=== PATIENT | female | born 1975 | race Caucasian/White ===

== ENCOUNTER 2024-12-29 13:15 | Outpatient (AMB) | payer MEDICAID, SELFPAY ==
--- NOTE | 2024-12-29 13:31 | PD.ORTHCLVIS ---
Vital signs 12/29/24 13:32 Height 1.57 m Height Method Stated Weight 87.742 kg Weight Measurement Method Standing Scale BMI 35.4 BP 113/77 Blood Pressure Source Automatic Cuff Blood Pressure Location Right Upper Arm Position Sitting Respiration 17 Pulse 71 Pulse Source Monitor Temp 96.9 F Temp Source Temporal Artery Scan Pulse Oximetry (%) 96 Oxygen Delivery Method Room Air Med/Allergies Allergies & Medications Allergies No Known Allergies Allergy (Verified 12/29/24 13:33) Medication Reconciliation ibuprofen 800 mg tablet 800 mg PO TID 12/29/24 [History Confirmed 12/29/24] meloxicam 7.5 mg tablet 7.5 mg PO QDAY #45 tabs 12/29/24 [Rx] Exam Exam Patient is in no acute distress and is cooperative with the examination today. Breathing is nonlabored. In no respiratory distress. Bilateral extremities were evaluated and demonstrates sensation intact to light touch. Palpable pedal pulses are present. No significant edema is present. Bilateral hips were examined. The patient has no pain with log roll of the hips. Internal rotation to 30 degrees and external rotation to 30 degrees is painless. Negative FADIR. The left knee was examined. The left knee is in varus alignment. Range of motion from 0-115 degrees. Knee is stable to varus and valgus as well as AP translation with <5mm. Patient has a negative McMurrays. There is no pain with patellofemoral compression and no crepitus noted. The knee is tender to palpation medially. The right knee was also examined. The right knee is in varus alignment. Range of motion from 0-120 degrees. Knee is stable to varus and valgus as well as AP translation with <5mm. Patient has a negative McMurrays. There is no pain with patellofemoral compression and no crepitus noted. The knee is tender to palpation medially. Assessment and Plan Problem List (1) Degenerative arthritis of knee, bilateral: Status: Acute Plan: Patient is a pleasant 49-year-old female with bilateral knee arthritis. Will get authorization for injections at next visit. I will also send her prescription for meloxicam. We will see her back after we get authorization for injections and we encouraged her to bring her x-rays Office Procedures GNS Level of Care Nursing/Assessment Patient Status: Initial/New Patient Nursing Assessment/Reassesment: Medication Reconciliation, Update PMH in EMR and Vital Signs Coordination of Care: Complex Care and Chronic Disease 1-5, Education Complex Pt/Fam, Consent,records obtained, informed consent, 1 Ins Authorization, Lab and Imaging orders, Results/Orders obtained and Staff clarify orders New Patient Charge New Patient Point Assignment: 1124 New Patient Point Charge: BOND CLERK Level 4 (0499-3178) MA Intake Visit Data Collection New Patient or Established: New Patient (never been to [facility]) Reason for Visit:: BILATERAL OSTEOARTHRITIS OF KNEE Seen by Clinical Staff ONLY (RN/MA): No Tangled Yarn Spool Straightener Required: No PCP or OBGYN visit in last 3 months: Yes Hx Now: No Do You Feel Safe at Home: Yes Authorities Contacted: N/A Questionairres Past Medical History Past Medical History Have you ever been diagnosed with any of the following: Respiratory Problems Smoking: No Smoking Exposure: No Tobacco Use: No Subjective Visit Visit for: new patient and knee (BILATERAL OSTEOARTHRISTIS ) Immunization / Flu Flu Vaccine in the Last 12 Months: No Flu Vaccine Exclusion Criteria: Refused by Patient History of Present Illness Chief complaint: Bilateral knee pain Carlie is a pleasant 49-year-old female with bilateral knee pain and bilateral knee arthritis. We discussed different treatment options. We discussed anti-inflammatories, injections, and physical therapy. She had 1 injection in May. Will get authorization for more injections. I would also need a copy of her weightbearing x-rays. She has tried ibuprofen in the past Personal History Red flag PMH: none Pain Pain level (0-10): 9 Pain duration: 07/2024 Pain location: anterior Pain quality: sharp, aching and other (specify) (SWELLING ) Pain timing: night and increases with activity Associated signs & symptoms: numbness, weakness and stiffness Ambulatory data Ambulatory device: none Walking distance (minutes): 10 Treatments Number of previous injections: 3 Improvement with previous injections: Yes Number of Physical Therapy sessions: 0 Improvement with NSAIDS: n/a Review of Systems Review of Systems: All systems negative unless otherwise noted in HPI.
[2024-12-29 13:32] VITALS: BP 113/77; PULSE 71; RESP 17; TEMP 36.1; O2SAT 96; BMI 35.4
== END 2024-12-29 13:52 | disposition home or self-care (01) ==
LOC: HODSRG 13:15
PROVIDERS: PCP Family Medicine; Referring Provider Family Medicine; Supervising Provider Orthopaedic Surgery Adult Reconstructive Orthopaedic Surgery; Visit Provider Orthopaedic Surgery Adult Reconstructive Orthopaedic Surgery
DX: M17.0 Bilateral primary osteoarthritis of knee (principal); M25.562 Pain in left knee; M25.561 Pain in right knee
CPT/HCPCS: 99204; G0463

== ENCOUNTER 2025-01-13 14:01 | Outpatient (AMB) | payer MEDICAID, SELFPAY ==
--- NOTE | 2025-01-13 14:10 | PD.ORTHCLVIS ---
Vital signs 01/13/25 14:11 Height 1.57 m Height Method Stated Weight 88.564 kg Weight Measurement Method Standing Scale BMI 35.9 BP 126/81 Blood Pressure Source Automatic Cuff Blood Pressure Location Left Upper Arm Position Sitting Respiration 19 Pulse 70 Pulse Source Monitor Temp 97.6 F Temp Source Temporal Artery Scan Pulse Oximetry (%) 97 Oxygen Delivery Method Room Air Med/Allergies Allergies & Medications Allergies No Known Allergies Allergy (Verified 01/13/25 14:11) Medication Reconciliation ibuprofen 800 mg tablet 800 mg PO TID 12/29/24 [History Confirmed 01/13/25] meloxicam 7.5 mg tablet 7.5 mg PO QDAY #45 tabs 12/29/24 [Rx Confirmed 01/13/25] Exam Exam Patient is in no acute distress and is cooperative with the examination today. Breathing is nonlabored. In no respiratory distress. Bilateral extremities were evaluated and demonstrates sensation intact to light touch. Palpable pedal pulses are present. No significant edema is present. Bilateral hips were examined. The patient has no pain with log roll of the hips. Internal rotation to 30 degrees and external rotation to 30 degrees is painless. Negative FADIR. The left knee was examined. The left knee is in varus alignment. Range of motion from 0-115 degrees. Knee is stable to varus and valgus as well as AP translation with <5mm. Patient has a negative McMurrays. There is no pain with patellofemoral compression and no crepitus noted. The knee is tender to palpation medially. The right knee was also examined. The right knee is in varus alignment. Range of motion from 0-120 degrees. Knee is stable to varus and valgus as well as AP translation with <5mm. Patient has a negative McMurrays. There is no pain with patellofemoral compression and no crepitus noted. The knee is tender to palpation medially. Assessment and Plan Problem List (1) Degenerative arthritis of knee, bilateral: Status: Acute Plan: Patient is a pleasant 49-year-old female with bilateral knee arthritis. She would bilateral knee injections today. Recommend knee cortisone injections as patient would like to proceed with conservative treatment at this time. The risks and benefits of the procedure were reviewed with the patient and patient gave verbal consent to continue with the procedure. Procedure: performed by Dr. Mendoza Using sterile technique the Bilateral knees were thoroughly prepped with alcohol, and approximately 1 cc of Kenalog 40 mg/mL and 4 cc of 1% lidocaine was injected into each knee without resistance into the medial tibial femoral joint space. The patient tolerated the procedure. Office Procedures GNS Level of Care Nursing/Assessment Patient Status: Established Patient Nursing Assessment/Reassesment: Medication Reconciliation, Update PMH in EMR and Vital Signs Coordination of Care: Complex Care and Chronic Disease 1-5, Education Complex Pt/Fam, Consent,records obtained, informed consent, Results/Orders obtained and Staff clarify orders Special Needs: Language special needs Established Patient Charge Established Patient Point Assignment: 95 Established Patient Point Charge: EP Level 3 (80-115) Surgical Proc/IM SQ injection Major Surgical Procedure: Yes (BILATERAL KNEE INJECTION) Medication Given Medication Given Medication Given: Yes Documented Dose Given: 8 Route: Infiitration Medication Given Medication Given Medication Given: Yes Documented Dose Given: 2 Route: Infiitration Office Meds Xylocaine 10 mg/mL (1 %) injection solution Performing Provider: Delfin Mendoza MD Performing Location: [facility] Administered by: Delfin Mendoza MD on 01/13/25 14:25 Dose Route Admin Location Dispensed Lot Number Expiration Date [facility] Early Childhood Teacher 40 mL Infiltration 40 mL [id number] 11/19/27 18670-765-06 [facility] triamcinolone acetonide 40 mg/mL suspension for injection Performing Provider: Delfin Mendoza MD Performing Location: [facility] Administered by: Delfin Mendoza MD on 01/13/25 14:25 Dose Route Admin Location Dispensed Lot Number Expiration Date [facility] Early Childhood Teacher 80 mg intra-articular 2 mL [id number] 02/17/26 10890-110-68 CESAR CABEZAS MA Intake Visit Data Collection New Patient or Established: Established Patient (seen at [facility] within 3 years) Reason for Visit:: XRAY RESULTS/BL KNEE INJECTION Seen by Clinical Staff ONLY (RN/MA): No Metal Fabrication Supervisor Required: Yes PCP or OBGYN visit in last 3 months: Yes Hx Now: No Do You Feel Safe at Home: Yes Authorities Contacted: N/A Questionairres Past Medical History Past Medical History Have you ever been diagnosed with any of the following: Respiratory Problems Smoking: No Smoking Exposure: No Tobacco Use: No Subjective Visit Visit for: follow up visit, knee (BILATERAL) and x-rays (RESULTS) Immunization / Flu Flu Vaccine in the Last 12 Months: No Flu Vaccine Exclusion Criteria: No Exclusion Criteria History of Present Illness Chief complaint: Bilateral knee pain Carlie is a pleasant 49-year-old female with bilateral knee pain and bilateral knee arthritis. We discussed different treatment options. We discussed anti-inflammatories, injections, and physical therapy. She had 1 injection in May. Will get authorization for more injections. Personal History Red flag PMH: none Pain Pain level (0-10): 6 Pain duration: ALL DAY Pain location: inside (medial), outside (lateral), anterior and posterior Pain quality: sharp, dull and aching Pain timing: night, increases with activity and stairs Associated signs & symptoms: weakness Ambulatory data Ambulatory device: cane Walking distance (minutes): 10 Treatments Number of previous injections: 3 Improvement with previous injections: No Number of Physical Therapy sessions: 0 Improvement with PT: No Improvement with NSAIDS: no Review of Systems Review of Systems: All systems negative unless otherwise noted in HPI.
[2025-01-13 14:11] VITALS: BP 126/81; PULSE 70; RESP 19; TEMP 36.4; O2SAT 97; BMI 35.9
--- NOTE | 2025-01-13 14:15 | XR_ITS ---
Examination: Bilateral knees 2 views Right lateral knee left lateral knee 2 views Bilateral axial knees single view TECHNIQUE: Bilateral AP knees standing single view, bilateral PA knees standing single view flexion Standing right lateral knee left lateral knee 2 views Bilateral axial knees single view Date and time: January 13, 2025 1425 hours INDICATIONS: Bilateral knee pain several years. FINDINGS: Moderate osteopenia Severe narrowing, [id number], lateral joint spaces bilaterally Bilateral moderate to advanced osteoarthritis patellofemoral joints IMPRESSION: Severe narrowing, [id number], lateral joint spaces bilaterally
== END 2025-01-13 14:27 | disposition home or self-care (01) ==
PROVIDERS: PCP Family Medicine; Referring Provider Family Medicine; Supervising Provider Orthopaedic Surgery Adult Reconstructive Orthopaedic Surgery; Visit Provider Orthopaedic Surgery Adult Reconstructive Orthopaedic Surgery
DX: M17.0 Bilateral primary osteoarthritis of knee (principal)
CPT/HCPCS: 20610; 73564; 99213; J3301; J3490; G0463

== ENCOUNTER 2025-04-20 09:10 | Outpatient (AMB) | payer MEDICAID, SELFPAY ==
--- NOTE | 2025-04-20 09:40 | ORTHONT_ITS ---
Vital signs 04/20/25 09:41 Height 1.57 m Height Method Measured Weight 85.304 kg Weight Measurement Method Standing Scale BMI 34.6 BP 113/76 Blood Pressure Source Automatic Cuff Blood Pressure Location Left Upper Arm Position Sitting Respiration 18 Pulse 76 Pulse Source Monitor Temp 97.4 F Temp Source Temporal Artery Scan Pulse Oximetry (%) 97 Oxygen Delivery Method Room Air Med/Allergies Allergies & Medications Allergies No Known Allergies Allergy (Verified 04/20/25 09:48) Medication Reconciliation ibuprofen 800 mg tablet 800 mg PO TID 12/29/24 [History Confirmed 04/20/25] meloxicam 7.5 mg tablet 7.5 mg PO QDAY #45 tabs 12/29/24 [Rx Confirmed 04/20/25] Exam Exam Patient is in no acute distress and is cooperative with the examination today. Breathing is nonlabored. In no respiratory distress. Bilateral extremities were evaluated and demonstrates sensation intact to light touch. Palpable pedal pulses are present. No significant edema is present. Bilateral hips were examined. The patient has no pain with log roll of the hips. Internal rotation to 30 degrees and external rotation to 30 degrees is painless. Negative FADIR. The left knee was examined. The left knee is in varus alignment. Range of motion from 0-115 degrees. Knee is stable to varus and valgus as well as AP translation with <5mm. Patient has a negative McMurrays. There is no pain with patellofemoral compression and no crepitus noted. The knee is tender to palpation medially. The right knee was also examined. The right knee is in varus alignment. Range of motion from 0-120 degrees. Knee is stable to varus and valgus as well as AP translation with <5mm. Patient has a negative McMurrays. There is no pain with patellofemoral compression and no crepitus noted. The knee is tender to palpation medially. Assessment and Plan Problem List (1) Degenerative arthritis of knee, bilateral: Status: Acute Plan: Patient is a pleasant 49-year-old female with bilateral knee arthritis. She would bilateral knee injections today. Recommend knee cortisone injection as patient would like to proceed with conservative treatment at this time. The risks and benefits of the procedure were reviewed with the patient and patient gave verbal consent to continue with the procedure. Procedure: performed by Dr. Mendoza Using sterile technique the Right knee was thoroughly prepped with alcohol, and approximately 1 cc of Depo-Medrol 80mg/mL and 4 cc of 0.2% ropivacaine was injected without resistance into the medial tibial femoral joint space. The patient tolerated the procedure. Recommend knee cortisone injection as patient would like to proceed with conservative treatment at this time. The risks and benefits of the procedure were reviewed with the patient and patient gave verbal consent to continue with the procedure. Procedure: performed by Dr. Mendoza Using sterile technique the leftknee was thoroughly prepped with alcohol, and approximately 1 cc of Depo- Medrol 80mg/mL and 4 cc of 0.2% ropivacaine was injected without resistance into the medial tibial femoral joint space. The patient tolerated the procedure. Office Procedures GNS Level of Care Nursing/Assessment Patient Status: Established Patient Nursing Assessment/Reassesment: Medication Reconciliation, Update PMH in EMR and Vital Signs Coordination of Care: Complex Care and Chronic Disease 1-5, Education Complex Pt/Fam, Consent,records obtained, informed consent, Results/Orders obtained and Staff clarify orders Special Needs: Language special needs Established Patient Charge Established Patient Point Assignment: 95 Established Patient Point Charge: EP Level 3 (80-115) Surgical Proc/IM SQ injection Minor Surgical Procedure: Yes (KNEE INJECTION) Medication Given Medication Given Medication Given: Yes Documented Dose Given: 1 Route: Infiitration Medication Given Medication Given Medication Given: Yes Documented Dose Given: 1 Route: Infiitration Medication Given Medication Given Medication Given: Yes Documented Dose Given: 4 Route: Infiitration Medication Given Medication Given Medication Given: Yes Documented Dose Given: 4 Route: Infiitration Office Meds methylprednisolone acetate 80 mg/mL suspension for injection Performing Provider: Delfin Mendoza MD Performing Location: [facility] Administered by: Delfin Mendoza MD on 04/20/25 09:54 Dose Route Admin Location Dispensed Lot Number Expiration Date Pack age [facility] End Finder Twisting Department 80 mg intra-articular KNEE 1 mL [id number] 12/19/26 [address]-2 7 [id number] [employer] methylprednisolone acetate 80 mg/mL suspension for injection Performing Provider: Delfin Mendoza MD Performing Location: [facility] Administered by: Dlefin Mendoza MD on 04/20/25 09:54 Dose Route Admin Location Dispensed Lot Number Expiration Date Pack age [facility] End Finder Twisting Department 80 mg intra-articular KNEE 1 mL [id number] 12/19/26 [address]-6 7 [id number] [employer] ropivacaine (PF) 2 mg/mL (0.2 %) injection solution Performing Provider: Delfin Mendoza MD Performing Location: [facility] Administered by: Delfin Mendoza MD on 04/20/25 09:54 Dose Route Admin Location Dispensed Lot Number Expiration Date Pack age [facility] End Finder Twisting Department 20 mL Infiltration KNEE 20 mL [id number] 08/21/27 95391-456-73 [id number] [facility] ropivacaine (PF) 2 mg/mL (0.2 %) injection solution Performing Provider: Delfin Mendoza MD Performing Location: [facility] Administered by: Delfin Mendoza MD on 04/20/25 09:54 Dose Route Admin Location Dispensed Lot Number Expiration Date Pack age [facility] End Finder Twisting Department 20 mL Infiltration KNEE 20 mL [id number] 08/21/27 79698-817-14 [id number] [facility] Intake Visit Data Collection New Patient or Established: Established Patient (seen at [facility] within 3 years) Reason for Visit:: XRAY RESULTS/BL KNEE INJECTION Seen by Clinical Staff ONLY (RN/MA): No Client Development Director Required: Yes PCP or OBGYN visit in last 3 months: Yes Hx Now: No Do You Feel Safe at Home: Yes Authorities Contacted: N/A Questionairres Past Medical History Past Medical History Have you ever been diagnosed with any of the following: Respiratory Problems Smoking: No Smoking Exposure: No Tobacco Use: No Subjective Visit Visit for: follow up visit, knee (BILATERAL) and x-rays (RESULTS) Immunization / Flu Flu Vaccine in the Last 12 Months: No Flu Vaccine Exclusion Criteria: No Exclusion Criteria History of Present Illness Chief complaint: Bilateral knee pain Carlie is a pleasant 49-year-old female with bilateral knee pain and bilateral k nee arthritis. We discussed different treatment options. We discussed anti- inflammatories, injections, and physical therapy. She did great with the last injections and would like another round of injections today. She has returned back to work Personal History Red flag PMH: none Pain Pain level (0-10): 6 Pain duration: ALL DAY Pain location: inside (medial), outside (lateral), anterior and posterior Pain quality: sharp, dull and aching Pain timing: night, increases with activity and stairs Associated signs & symptoms: weakness Ambulatory data Ambulatory device: cane Walking distance (minutes): 10 Treatments Number of previous injections: 3 Improvement with previous injections: No Number of Physical Therapy sessions: 0 Improvement with PT: No Improvement with NSAIDS: no Review of Systems Review of Systems: All systems negative unless otherwise noted in HPI.
[2025-04-20 09:41] VITALS: BP 113/76; PULSE 76; RESP 18; TEMP 36.3; O2SAT 97; BMI 34.6
== END 2025-04-20 09:58 | disposition home or self-care (01) ==
PROVIDERS: PCP Family Medicine; Referring Provider Family Medicine; Supervising Provider Orthopaedic Surgery Adult Reconstructive Orthopaedic Surgery; Visit Provider Orthopaedic Surgery Adult Reconstructive Orthopaedic Surgery
DX: M17.0 Bilateral primary osteoarthritis of knee (principal); M25.562 Pain in left knee; M25.561 Pain in right knee
CPT/HCPCS: 20610; 99213; J1010; J2795; G0463

== ENCOUNTER 2025-06-29 14:06 | Outpatient (AMB) | payer MEDICAID, SELFPAY ==
[2025-06-29 14:22] VITALS: BP 126/83; PULSE 82; RESP 19; TEMP 35.7; O2SAT 92; BMI 31.3
--- NOTE | 2025-06-29 14:22 | PD.ORTHCLVIS ---
Vital signs 06/29/25 14:22 Height 1.57 m Height Method Stated Weight 77.281 kg Weight Measurement Method Standing Scale BMI 31.3 BP 126/83 Blood Pressure Source Automatic Cuff Blood Pressure Location Left Upper Arm Position Sitting Respiration 19 Pulse 82 Pulse Source Monitor Temp 96.3 F L Temp Source Temporal Artery Scan Pulse Oximetry (%) 92 L Oxygen Delivery Method Room Air Med/Allergies Allergies & Medications Allergies No Known Allergies Allergy (Verified 06/29/25 14:23) Medication Reconciliation ibuprofen 800 mg tablet 800 mg PO TID 12/29/24 [History Confirmed 06/29/25] meloxicam 7.5 mg tablet 7.5 mg PO QDAY #45 tabs 12/29/24 [Rx Confirmed 06/29/25] Exam Exam Patient is in no acute distress and is cooperative with the examination today. Breathing is nonlabored. In no respiratory distress. Bilateral extremities were evaluated and demonstrates sensation intact to light touch. Palpable pedal pulses are present. No significant edema is present. Bilateral hips were examined. The patient has no pain with log roll of the hips. Internal rotation to 30 degrees and external rotation to 30 degrees is painless. Negative FADIR. The left knee was examined. The left knee is in valgus alignment. Range of motion from 0-115 degrees. Knee is stable to varus and valgus as well as AP translation with <5mm. Patient has a negative McMurrays. There is no pain with patellofemoral compression and no crepitus noted. The knee is tender to palpation laterally. The right knee was also examined. The right knee is in valgus alignment. Range of motion from 0-120 degrees. Knee is stable to varus and valgus as well as AP translation with <5mm. Patient has a negative McMurrays. There is no pain with patellofemoral compression and no crepitus noted. The knee is tender to palpation laterally. X-rays demonstrate complete joint space narrowing and obliteration of the lateral joint space. Valgus deformity is present Assessment and Plan Problem List (1) Degenerative arthritis of knee, bilateral: Status: Acute Plan: Patient is a pleasant 49-year-old female with bilateral knee arthritis. She has tried injections, anti-inflammatories, and physical therapy. The right side is hurting more than the left and we will the start on this side. The nature and purpose of the total knee replacement, alternative method(s) of treatment, the material risks involved, and the possibility of complications were fully explained to the patient. The patient does NOT have any of the following contraindications to TKA: - Active infection of the knee joint, OR - Active systemic bacteremia, OR - Active skin infection or open wound at surgical site, OR - Neuropathic arthritis, OR - Severe, rapidly progressive neurological disease, OR - Severe medical condition that makes risks of surgery outweigh the potential benefit The patient was told the most common risks and complications associated with a total knee replacement include, but are not limited to: blood clots in the leg, fatal pulmonary embolism, dislocation of the prosthesis, intraoperative and postoperative fractures of the femur or tibia, infection, failure of the prosthesis or grafting materials, complications from anesthesia, reactions to blood transfusions, postoperative leg length inequality, instability of the knee replacement, nerve damage or injury, vascular injury, delayed wound healing, infection, other injury or even . In addition, there are risks associated with anesthesia given during this operation. Also, the patient was told that after undergoing a total knee replacement there may still be persistent pain or disability. The patient was informed that the success of this operation in part depends upon the mechanical devices which are going to be implanted and that these devices can fail or malfunction, and may need to be repaired or replaced and there are no guarantees as to the longevity of this device or its parts and that it or its parts could fail prematurely. The patient was also notified that during the course of surgery, there may be a need to use bone graft from donors, and that any bone graft used will be carefully screened for communicable diseases, including AIDS, hepatitis, Carlos-Creutzfeldt, or other diseases, but despite the screening procedures, there is a small chance that they could contract one of these diseases. Finally, the patient was asked to follow completely and fully with all advice and recommended treatments, and that recovery and ultimate outcome are affected by their compliance with recommended treatment. We discussed the risks, benefits and treatment alternatives, and the patient is interested in proceeding with surgery. We will try to set this up as expeditiously as possible. Office Procedures GNS Level of Care Nursing/Assessment Patient Status: Established Patient Nursing Assessment/Reassesment: Medication Reconciliation, Update PMH in EMR and Vital Signs Coordination of Care: Complex Care and Chronic Disease 1-5, Education Complex Pt/Fam, Consent,records obtained, informed consent, Results/Orders obtained and Staff clarify orders Special Needs: Language special needs Established Patient Charge Established Patient Point Assignment: 95 Established Patient Point Charge: EP Level 3 (80-115) MA Intake Visit Data Collection New Patient or Established: Established Patient (seen at [facility] [place] within 3 years) Reason for Visit:: SEVERE RIGHT KNEE PAIN Seen by Clinical Staff ONLY (RN/MA): No Movie Writer Required: Yes PCP or OBGYN visit in last 3 months: Yes Hx Now: No Do You Feel Safe at Home: Yes Authorities Contacted: N/A Questionairres Past Medical History Past Medical History Have you ever been diagnosed with any of the following: Respiratory Problems Smoking: No Smoking Exposure: No Tobacco Use: No Subjective Visit Visit for: follow up visit and knee (RIGHT) Immunization / Flu Flu Vaccine in the Last 12 Months: No Flu Vaccine Exclusion Criteria: No Exclusion Criteria History of Present Illness Chief complaint: Bilateral knee pain Carlie is a pleasant 49-year-old female with bilateral knee pain and bilateral knee arthritis. We discussed different treatment options. We discussed anti-inflammatories, injections, and physical therapy. The last injection only worked for 2 months. The pain is now back and she would like to proceed with surgery as the pain is miserable. She has tried injections over, 3, nsaids, and pt. Personal History Red flag PMH: none Pain Pain level (0-10): 10 Pain duration: ALL DAY Pain location: inside (medial), outside (lateral), anterior and posterior Pain quality: sharp, dull and aching Pain timing: night, increases with activity and stairs Associated signs & symptoms: weakness Ambulatory data Ambulatory device: cane and other (specify) (CRUTCHES) Walking distance (minutes): 10 Treatments Number of previous injections: 3 Improvement with previous injections: No Number of Physical Therapy sessions: 0 Improvement with PT: No Improvement with NSAIDS: no Review of Systems Review of Systems: All systems negative unless otherwise noted in HPI.
== END 2025-06-29 14:55 | disposition home or self-care (01) ==
LOC: HODSRG 14:06
PROVIDERS: PCP Family Medicine; Referring Provider Family Medicine; Supervising Provider Orthopaedic Surgery Adult Reconstructive Orthopaedic Surgery; Visit Provider Orthopaedic Surgery Adult Reconstructive Orthopaedic Surgery
DX: M17.0 Bilateral primary osteoarthritis of knee (principal); M25.562 Pain in left knee; M25.561 Pain in right knee
CPT/HCPCS: 99213; G0463